=== PATIENT | female | born 1985 | race Caucasian/White ===

== ENCOUNTER 2017-04-03 17:14 | Emergency (ER) | payer MEDICAID ==
[~2017-04-03] VITALS: Ht 162.6 cm; Wt 77.8 kg
[2017-04-03 17:44] VITALS: BP 133/76
--- NOTE | 2017-04-03 17:48 | NUR ---
PT [id number] WITH EVEN AND STEADY GAIT; RR EVEN/UNLABORED AT THIS TIME; PT TO LOBBY AWAITING OPEN BED.
--- NOTE | 2017-04-03 19:56 | NUR ---
DOESNT WANT TO WAIT, TO SEE PMD IN MORNING.PATIENT LEFT WITHOUT BEING SEEN BY DR. SINCLAIR. NO FURTHER CARE PROVIDED FOR PATIENT.
== END 2017-04-03 19:56 | disposition left against medical advice (07) ==
LOC: MED 17:14
DX: R06.02 Shortness of breath (principal); Z53.21 Procedure and treatment not carried out due to patient leaving prior to being seen by health care provider
CPT/HCPCS: 99281